=== PATIENT | female | born 1940 | race Hispanic/Latino ===

== ENCOUNTER 2018-03-27 14:28 | Emergency (ER) | payer MEDICARE, OTHER ==
[2018-03-27] MEDS ORDERED: Acetaminophen 500 MG TAB ONE (15:06)
--- NOTE | 2018-03-27 16:48 | CT ---
CT OF THE CERVICAL SPINE WITHOUT CONTRAST: Date: 03/27/18 COMPARISON: None. HISTORY: Fall with head trauma and neck pain. TECHNIQUE: Multiple contiguous axial images were obtained in a CT of the cervical spine without contrast. Sagitt al and coronal reformats were performed. FINDINGS: There are moderate degenerative changes in the lower cervical spine. The vertebral bodies demonstrate normal height and alignment without acute fracture or subluxation. No prevertebral soft tissue swell ing is seen. The posterior facets are well aligned. Normal alignment of the skull base with the cervical spine is seen. IMPRESSION: Degenerative changes of the cervical spine without acute osseous abnormality. POS: KEVIN
== END 2018-03-27 20:29 | disposition home or self-care (01) ==
LOC: ERS 14:28
DX: S16.1XXA Strain of muscle, fascia and tendon at neck level, initial encounter (principal); S70.01XA Contusion of right hip, initial encounter; E78.5 Hyperlipidemia, unspecified; E11.9 Type 2 diabetes mellitus without complications; Z79.4 Long term (current) use of insulin; I10 Essential (primary) hypertension; W11.XXXA Fall on and from ladder, initial encounter
CPT/HCPCS: 72125

== ENCOUNTER 2019-10-17 20:14 | Emergency (ER) | payer MEDICARE, OTHER | END 2019-10-17 20:43 | disposition home or self-care (01) | LOC: ERS 20:14 | DX: T16.2XXA Foreign body in left ear, initial encounter (principal); E11.9 Type 2 diabetes mellitus without complications; E78.5 Hyperlipidemia, unspecified; I10 Essential (primary) hypertension; Z79.4 Long term (current) use of insulin; Z79.899 Other long term (current) drug therapy; Z79.51 Long term (current) use of inhaled steroids | CPT/HCPCS: 99282 ==

== ENCOUNTER 2021-10-22 09:10 | Inpatient (IN) | payer MEDICARE, OTHER ==
[2021-10-22 09:37] LABS: #Lymphocytes 1.7 thou/uL (1.20-3.40); #Monocytes 0.6 thou/uL (0.11-0.59); #Neutrophils 6.2 thou/uL (1.40-6.50); %Basophils 0.4 % (0.0-1.0); %Lymphocytes 19.8 % (21.0-51.0); %Monocytes 7.3 % (0.0-10.0); %Neutrophils 72.5 % (42.0-75.0); Hemoglobin 10.2 g/dL (12.0-16.0); Mean Corpuscular HGB CONC 31.3 g/dL (32.0-36.0); Mean Corpuscular Hemoglobin 28.4 pg (27.0-31.0); Mean Corpuscular Volume 90.7 fL (78.0-98.0); Mean Platelet Volume 6.7 fL (7.4-10.4); Platelet Count 275 thou/uL (130-400); RBC Distribution Width 13.8 % (11.5-14.5); Red Blood Cell (RBC) Count 3.58 mill/uL (4.20-5.40); White Blood Cell (WBC) Count 8.6 thou/uL (4.8-10.8)
[2021-10-22] MEDS ORDERED: Diltiazem 125 MG/25 ML ONE (09:51)
[2021-10-22 10:01] LABS: ALT (SGPT) 25 U/L (8-55); AST (SGOT) 33 U/L (5-34); Albumin 3.4 g/dL (3.4-4.8); Alkaline Phosphatase 95 U/L (40-110); Anion Gap 13 mmol/L (10-20); BUN (Urea Nitrogen) 12 mg/dL (9.8-20.1); Bilirubin, Total 0.5 mg/dL (0.2-1.2); Calc. Creatinine Clearance 0 mL/min (70-130); Calcium 8.6 mg/dL (7.8-10.44); Carbon Dioxide 23 mmol/L (23-31); Chloride 100 mmol/L (98-107); Globulin 3.8 g/dL (2.4-3.5); Glucose 62 mg/dL (83-110); Lipase 12 U/L (8-78); Potassium 3.3 mmol/L (3.5-5.1); Protein, Total 7.2 g/dL (5.8-8.1); Sodium 133 mmol/L (136-145)
[2021-10-22 10:23] LABS: CKMB 3.8 ng/mL (0-6.6)
[2021-10-22] MEDS ORDERED: Amiodarone 150 MG, Admixture Fee 1 EACH in Dextrose 5% in Water 100 ML IVPB SCH (11:15)
[2021-10-22] MEDS ORDERED: Amiodarone 450 MG, Admixture Fee 1 EACH in Dextrose 5% in Water 250 ML IVPB SCH (11:15)
[2021-10-22] MEDS ORDERED: Ondansetron PF 4 MG/2 ML Vial IVP PRN (11:17)
[2021-10-22] MEDS ORDERED: Dextrose 50% Abboject 50 ML SYRINGE SLOW IVP PRN (11:25)
[2021-10-22] MEDS ORDERED: Dextrose 5% in Water 1,000 ML IV PRN (11:25)
[2021-10-22] MEDS ORDERED: HumaLOG 300 UNITS/3 ML VIAL SC PRN ×2 (11:25→14:30)
[2021-10-22] MEDS ORDERED: Enoxaparin Sodium 40 MG/0.4 ML SYRINGE SC SCH (11:30)
[2021-10-22] MEDS ORDERED: Amiodarone 450 MG in Dextrose 5% in Water 250 ML IVPB SCH (11:30)
[2021-10-22] MEDS ORDERED: Ondansetron PF 4 MG/2 ML Vial ONE (11:40)
[2021-10-22 12:08] LABS: Magnesium 1.9 mg/dL (1.6-2.6)
[2021-10-22] MEDS ORDERED: Enoxaparin Sodium 100 MG/ML SYRINGE ONE ×2 (12:16→12:17)
[2021-10-22 12:17] LABS: Troponin I 0.037 ng/mL (< 0.028)
[2021-10-22 12:59] VITALS: BMI 40.6
[2021-10-22] MEDS ORDERED: Magnesium 2 GM/50 ML 2 GM in Premix Bag 1 BAG IVPB SCH (13:15)
[2021-10-22] MEDS ORDERED: Calcium Carbonate 500 MG ChewTAB PO PRN (14:34)
[2021-10-22] MEDS ORDERED: Senokot S 8.6-50 MG TAB PO PRN (14:34)
[2021-10-22] MEDS ORDERED: Potassium Chloride 20 MEQ TAB PO SCH ×3 (14:45→21:00)
[2021-10-22] MEDS ORDERED: Furosemide 40 MG/4 ML VIAL SLOW IVP SCH (15:15)
[2021-10-22 18:20] LABS: Potassium 3.2 mmol/L (3.5-5.1)
[2021-10-22 18:21] LABS: Troponin I 0.037 ng/mL (< 0.028)
[2021-10-22] MEDS: Acetaminophen 325 MG TAB PO PRN (20:16)
[2021-10-22] MEDS: Enoxaparin Sodium 100 MG/ML SYRINGE SC SCH (20:17)
[2021-10-22] MEDS ORDERED: Famotidine 20 MG TAB PO SCH (21:00)
[2021-10-23 04:06] LABS: Anion Gap 13 mmol/L (10-20); BUN (Urea Nitrogen) 13 mg/dL (9.8-20.1); Calc. Creatinine Clearance 59 mL/min (70-130); Calcium 8.2 mg/dL (7.8-10.44); Carbon Dioxide 22 mmol/L (23-31); Chloride 105 mmol/L (98-107); Sodium 136 mmol/L (136-145)
[2021-10-23 04:17] LABS: #Lymphocytes 1.8 thou/uL (1.20-3.40); #Monocytes 0.9 thou/uL (0.11-0.59); #Neutrophils 6.7 thou/uL (1.40-6.50); %Basophils 0.5 % (0.0-1.0); %Lymphocytes 18.8 % (21.0-51.0); %Monocytes 9.2 % (0.0-10.0); %Neutrophils 71.4 % (42.0-75.0); Hemoglobin 9.7 g/dL (12.0-16.0); Mean Corpuscular HGB CONC 31.3 g/dL (32.0-36.0); Mean Corpuscular Hemoglobin 29.3 pg (27.0-31.0); Mean Corpuscular Volume 93.6 fL (78.0-98.0); Mean Platelet Volume 6.7 fL (7.4-10.4); Platelet Count 247 thou/uL (130-400); Red Blood Cell (RBC) Count 3.32 mill/uL (4.20-5.40); White Blood Cell (WBC) Count 9.3 thou/uL (4.8-10.8)
[2021-10-23 04:18] LABS: Glucose 52 mg/dL (83-110)
[2021-10-23] MEDS: Furosemide 40 MG/4 ML VIAL SLOW IVP SCH ×2 (06:44→13:03)
[2021-10-23] MEDS: Aspirin 81 mg Enteric Coated Tablet PO SCH (08:38)
[2021-10-23] MEDS: Enoxaparin Sodium 100 MG/ML SYRINGE SC SCH ×2 (08:38→20:33)
[2021-10-23] MEDS ORDERED: Enoxaparin Sodium 40 MG/0.4 ML SYRINGE SC SCH (09:00)
[2021-10-23] MEDS ORDERED: Iopamidol 370 76% 100 ML VIAL ONE (10:08)
[2021-10-23] MEDS ORDERED: Potassium Chloride 20 MEQ TAB PO SCH ×2 (10:45→17:00)
[2021-10-23] MEDS: Potassium Chloride 20 MEQ TAB PO SCH (17:11)
[2021-10-23] MEDS ORDERED: Ipratropium Bromide 2.5 ml Neb NEB PRN (17:48)
[2021-10-23] MEDS ORDERED: Albuterol Sulfate 2.5 mg/0.5 ml Neb NEB PRN (17:56)
[2021-10-23] MEDS: Ipratropium Bromide 2.5 ml Neb NEB SCH (19:00)
[2021-10-23] MEDS: Atorvastatin Calcium 20 MG TAB PO SCH (20:33)
[2021-10-24] MEDS: Ipratropium Bromide 2.5 ml Neb NEB SCH ×4 (01:00→19:25)
[2021-10-24 05:15] LABS: Anion Gap 9 mmol/L (10-20); BUN (Urea Nitrogen) 12 mg/dL (9.8-20.1); Calc. Creatinine Clearance 64 mL/min (70-130); Calcium 8.4 mg/dL (7.8-10.44); Carbon Dioxide 30 mmol/L (23-31); Chloride 102 mmol/L (98-107); Glucose 95 mg/dL (83-110); Magnesium 1.6 mg/dL (1.6-2.6); Potassium 3.8 mmol/L (3.5-5.1); Sodium 137 mmol/L (136-145)
[2021-10-24] MEDS: Furosemide 40 MG/4 ML VIAL SLOW IVP SCH ×2 (05:42→12:41)
[2021-10-24] MEDS: Aspirin 81 mg Enteric Coated Tablet PO SCH (08:32)
[2021-10-24] MEDS: Potassium Chloride 20 MEQ TAB PO SCH ×2 (08:32→17:25)
[2021-10-24] MEDS: Enoxaparin Sodium 100 MG/ML SYRINGE SC SCH ×2 (08:32→20:59)
[2021-10-24] MEDS ORDERED: Amiodarone 150 MG in Dextrose 5% in Water 100 ML IVPB SCH (09:15)
[2021-10-24] MEDS ORDERED: Magnesium Sulfate 4 GM in Sodium Chloride 0.9% 250 ML 250 ML IVPB SCH (10:00)
[2021-10-24] MEDS ORDERED: Digoxin 0.5 MG/2 ML AMP SLOW IVP SCH (11:45)
[2021-10-24] MEDS: HumaLOG 300 UNITS/3 ML VIAL SC PRN ×3 (12:41→20:59)
[2021-10-24] MEDS: Acetaminophen 325 MG TAB PO PRN (17:31)
[2021-10-24] MEDS: Amiodarone 450 MG in Dextrose 5% in Water 250 ML IVPB SCH (18:27)
[2021-10-24] MEDS: Atorvastatin Calcium 20 MG TAB PO SCH (20:59)
[2021-10-25] MEDS: Ipratropium Bromide 2.5 ml Neb NEB SCH ×4 (01:51→19:15)
[2021-10-25 04:41] LABS: BUN (Urea Nitrogen) 14 mg/dL (9.8-20.1); Calc. Creatinine Clearance 57 mL/min (70-130); Chloride 96 mmol/L (98-107); Glucose 181 mg/dL (83-110); Magnesium 1.8 mg/dL (1.6-2.6); Potassium 4.2 mmol/L (3.5-5.1); Sodium 135 mmol/L (136-145)
[2021-10-25] MEDS: Furosemide 40 MG/4 ML VIAL SLOW IVP SCH (06:35)
[2021-10-25] MEDS: HumaLOG 300 UNITS/3 ML VIAL SC PRN ×2 (06:35→22:33)
[2021-10-25] MEDS ORDERED: Magnesium Sulfate 2 GM in Sodium Chloride 0.9% 100 ML IVPB SCH (08:15)
[2021-10-25] MEDS: Enoxaparin Sodium 100 MG/ML SYRINGE SC SCH ×2 (08:53→21:59)
[2021-10-25] MEDS: Aspirin 81 mg Enteric Coated Tablet PO SCH (08:54)
[2021-10-25] MEDS: Potassium Chloride 20 MEQ TAB PO SCH ×2 (08:54→17:43)
[2021-10-25] MEDS ORDERED: Magnesium 2 GM/50 ML 2 GM in Premix Bag 1 BAG IVPB SCH (09:00)
[2021-10-25] MEDS ORDERED: Digoxin 0.5 MG/2 ML AMP SLOW IVP SCH (09:00)
[2021-10-25] MEDS: Acetaminophen 325 MG TAB PO PRN (13:22)
[2021-10-25] MEDS: Atorvastatin Calcium 20 MG TAB PO SCH (22:00)
[2021-10-25] MEDS: Metoprolol Tartrate 25 MG TAB PO SCH (22:00)
[2021-10-26] MEDS: Ipratropium Bromide 2.5 ml Neb NEB SCH ×5 (01:00→23:06)
[2021-10-26] MEDS: Amiodarone 450 MG in Dextrose 5% in Water 250 ML IVPB SCH (01:55)
[2021-10-26] MEDS: Acetaminophen 325 MG TAB PO PRN (02:03)
[2021-10-26 06:00] LABS: BUN (Urea Nitrogen) 12 mg/dL (9.8-20.1); Calc. Creatinine Clearance 64 mL/min (70-130); Calcium 8.6 mg/dL (7.8-10.44); Chloride 95 mmol/L (98-107); Glucose 241 mg/dL (83-110); Magnesium 1.4 mg/dL (1.6-2.6); Potassium 3.9 mmol/L (3.5-5.1); Sodium 132 mmol/L (136-145)
[2021-10-26] MEDS: HumaLOG 300 UNITS/3 ML VIAL SC PRN ×3 (06:04→17:10)
[2021-10-26] MEDS ORDERED: Magnesium Sulfate 4 GM in Sodium Chloride 0.9% 250 ML 250 ML IVPB SCH (08:30)
[2021-10-26 08:46] LABS: Digoxin 1.27 ng/mL (0.8-2.0)
[2021-10-26] MEDS: Potassium Chloride 20 MEQ TAB PO SCH ×2 (09:59→17:01)
[2021-10-26] MEDS: Furosemide 40 MG/4 ML VIAL SLOW IVP SCH (10:00)
[2021-10-26] MEDS: Enoxaparin Sodium 100 MG/ML SYRINGE SC SCH (10:01)
[2021-10-26] MEDS: Metoprolol Tartrate 25 MG TAB PO SCH (10:02)
[2021-10-26] MEDS: Aspirin 81 mg Enteric Coated Tablet PO SCH (10:02)
[2021-10-26] MEDS: Digoxin 0.125 MG TAB PO SCH (10:02)
[2021-10-26 16:12] LABS: Anion Gap 14 mmol/L (10-20); BUN (Urea Nitrogen) 11 mg/dL (9.8-20.1); Calc. Creatinine Clearance 53 mL/min (70-130); Calcium 9.2 mg/dL (7.8-10.44); Carbon Dioxide 30 mmol/L (23-31); Chloride 95 mmol/L (98-107); Glucose 259 mg/dL (83-110); Potassium 4.1 mmol/L (3.5-5.1); Sodium 135 mmol/L (136-145)
[2021-10-26 16:26] LABS: Carbon Dioxide 24 mmol/L (23-31)
[2021-10-26 16:26] LABS: Anion Gap 15 mmol/L (10-20); Carbon Dioxide 28 mmol/L (23-31)
[2021-10-26 16:27] LABS: Anion Gap 17 mmol/L (10-20)
[2021-10-26] MEDS ORDERED: Amiodarone 200 MG TAB PO SCH (16:30)
[2021-10-26] MEDS: Amiodarone 200 MG TAB PO SCH (20:44)
[2021-10-26] MEDS: Apixaban 5 MG TAB PO SCH (20:45)
[2021-10-26] MEDS: Atorvastatin Calcium 20 MG TAB PO SCH (20:45)
[2021-10-27] MEDS: HumaLOG 300 UNITS/3 ML VIAL SC PRN ×5 (02:04→19:33)
[2021-10-27 05:09] LABS: Anion Gap 11 mmol/L (10-20); BUN (Urea Nitrogen) 10 mg/dL (9.8-20.1); Calc. Creatinine Clearance 60 mL/min (70-130); Calcium 8.8 mg/dL (7.8-10.44); Carbon Dioxide 32 mmol/L (23-31); Chloride 96 mmol/L (98-107); Glucose 200 mg/dL (83-110); Magnesium 1.9 mg/dL (1.6-2.6); Sodium 135 mmol/L (136-145)
[2021-10-27] MEDS: Ipratropium Bromide 2.5 ml Neb NEB SCH ×4 (07:49→23:16)
[2021-10-27] MEDS ORDERED: Magnesium Sulfate 2 GM in Sodium Chloride 0.9% 100 ML IVPB SCH (08:15)
[2021-10-27] MEDS ORDERED: Magnesium 2 GM/50 ML 2 GM in Premix Bag 1 BAG IVPB SCH (08:15)
[2021-10-27] MEDS: Aspirin 81 mg Enteric Coated Tablet PO SCH (09:54)
[2021-10-27] MEDS: Apixaban 5 MG TAB PO SCH ×2 (09:54→19:34)
[2021-10-27] MEDS: Potassium Chloride 20 MEQ TAB PO SCH ×2 (09:55→17:09)
[2021-10-27] MEDS: Amiodarone 200 MG TAB PO SCH ×2 (09:55→19:34)
[2021-10-27] MEDS: Digoxin 0.25 MG TAB PO SCH (09:56)
[2021-10-27] MEDS: Lisinopril 2.5 MG TAB PO SCH (09:56)
[2021-10-27] MEDS: Furosemide 40 MG/4 ML VIAL SLOW IVP SCH (09:56)
[2021-10-27] MEDS: Digoxin 0.125 MG TAB PO SCH (11:55)
[2021-10-27] MEDS: Atorvastatin Calcium 20 MG TAB PO SCH (19:34)
[2021-10-28] MEDS: HumaLOG 300 UNITS/3 ML VIAL SC PRN ×3 (02:49→18:07)
[2021-10-28 05:50] LABS: Anion Gap 14 mmol/L (10-20); BUN (Urea Nitrogen) 17 mg/dL (9.8-20.1); Calc. Creatinine Clearance 46 mL/min (70-130); Calcium 8.7 mg/dL (7.8-10.44); Carbon Dioxide 28 mmol/L (23-31); Chloride 94 mmol/L (98-107); Glucose 225 mg/dL (83-110); Magnesium 1.9 mg/dL (1.6-2.6); Potassium 4.3 mmol/L (3.5-5.1); Sodium 132 mmol/L (136-145)
[2021-10-28] MEDS: Ipratropium Bromide 2.5 ml Neb NEB SCH ×3 (07:31→19:55)
[2021-10-28] MEDS ORDERED: Electrolyte Replacement Protocol 1 EACH FS SCH (08:00)
[2021-10-28] MEDS ORDERED: Magnesium Sulfate 2 GM in Sodium Chloride 0.9% 100 ML IVPB SCH (08:00)
[2021-10-28] MEDS ORDERED: Magnesium 2 GM/50 ML 2 GM in Premix Bag 1 BAG IVPB SCH (08:00)
[2021-10-28] MEDS: Lisinopril 2.5 MG TAB PO SCH (08:48)
[2021-10-28] MEDS: Aspirin 81 mg Enteric Coated Tablet PO SCH (08:48)
[2021-10-28] MEDS: Digoxin 0.25 MG TAB PO SCH (08:49)
[2021-10-28] MEDS: Potassium Chloride 20 MEQ TAB PO SCH ×2 (08:49→15:57)
[2021-10-28] MEDS: Amiodarone 200 MG TAB PO SCH ×2 (08:50→20:56)
[2021-10-28] MEDS: Apixaban 5 MG TAB PO SCH ×2 (08:51→20:56)
[2021-10-28] MEDS: Furosemide 40 MG/4 ML VIAL SLOW IVP SCH (10:00)
[2021-10-28 13:02] LABS: SARS-CoV-2 PCR by NAA Not Detected (NotDetected)
[2021-10-28] MEDS: Atorvastatin Calcium 20 MG TAB PO SCH (20:56)
[2021-10-28] MEDS ORDERED: HumaLOG 300 UNITS/3 ML VIAL SC PRN (22:39)
[2021-10-28] MEDS ORDERED: Dextrose 50% Abboject 50 ML SYRINGE SLOW IVP PRN (22:39)
[2021-10-28] MEDS ORDERED: Dextrose 5% in Water 1,000 ML IV PRN (22:39)
[2021-10-29] MEDS: Ipratropium Bromide 2.5 ml Neb NEB SCH ×2 (01:50→08:24)
[2021-10-29] MEDS: HumaLOG 300 UNITS/3 ML VIAL SC PRN ×2 (06:03→11:07)
[2021-10-29 07:49] VITALS: TEMP 98.3
[2021-10-29] MEDS ORDERED: NPH, Human Insulin Isophane 300 UNIT/3 ML VIAL SC SCH (09:00)
[2021-10-29] MEDS: Aspirin 81 mg Enteric Coated Tablet PO SCH (09:21)
[2021-10-29] MEDS: Amiodarone 200 MG TAB PO SCH (09:21)
[2021-10-29] MEDS: Apixaban 5 MG TAB PO SCH (09:21)
[2021-10-29] MEDS: Lisinopril 2.5 MG TAB PO SCH (09:23)
[2021-10-29 11:45] VITALS: BP 142/61
== END 2021-10-29 12:36 | disposition home or self-care (01) | DRG 291 ==
LOC: ERS 09:10 → IMCU/EMU 11:28 → 2NO 10-23 15:18
PROVIDERS: ADMIT Internal Medicine; ATTEND Internal Medicine
DX: I11.0 Hypertensive heart disease with heart failure (principal); J96.01 Acute respiratory failure with hypoxia; I50.43 Acute on chronic combined systolic (congestive) and diastolic (congestive) heart failure; Z68.41 Body mass index [BMI] 40.0-44.9, adult; E87.1 Hypo-osmolality and hyponatremia; E87.3 Alkalosis; Z20.822 Contact with and (suspected) exposure to COVID-19; M19.90 Unspecified osteoarthritis, unspecified site; K59.00 Constipation, unspecified; E78.5 Hyperlipidemia, unspecified; G25.81 Restless legs syndrome; K21.9 Gastro-esophageal reflux disease without esophagitis; E66.01 Morbid (severe) obesity due to excess calories; E87.6 Hypokalemia; D53.9 Nutritional anemia, unspecified; I48.0 Paroxysmal atrial fibrillation; I08.1 Rheumatic disorders of both mitral and tricuspid valves; E11.649 Type 2 diabetes mellitus with hypoglycemia without coma; E83.42 Hypomagnesemia; Z79.4 Long term (current) use of insulin; Z90.49 Acquired absence of other specified parts of digestive tract; Z90.710 Acquired absence of both cervix and uterus; Z98.42 Cataract extraction status, left eye; Z98.41 Cataract extraction status, right eye; Z88.5 Allergy status to narcotic agent; Z88.8 Allergy status to other drugs, medicaments and biological substances; Z86.16 Personal history of COVID-19; Z79.899 Other long term (current) drug therapy
CPT/HCPCS: 36415; 36416; 71045; 71275; 80048; 80053; 80162; 82533; 82553; 83690; 83735; 83880; 84484; 85025; 85379; 93005; 93010; 93306; 93798; 94640; 96365; 96372; 96374; 96375; J0282; J1160; J1650; J1815; J1940; J2405; J3475; J7050; J7070; Q9967; U0003; U0005

== ENCOUNTER 2022-01-31 00:54 | Emergency (ER) | payer MEDICARE, OTHER | END 2022-01-31 03:30 | disposition home or self-care (01) | LOC: ERS 00:54 | DX: E11.649 Type 2 diabetes mellitus with hypoglycemia without coma (principal); I10 Essential (primary) hypertension; E78.5 Hyperlipidemia, unspecified; M19.90 Unspecified osteoarthritis, unspecified site; Z79.4 Long term (current) use of insulin; Z86.16 Personal history of COVID-19; Z79.01 Long term (current) use of anticoagulants; Z79.899 Other long term (current) drug therapy | CPT/HCPCS: 36416; 70450; 71045 ==

== ENCOUNTER 2022-05-09 23:24 | Observation (INO) | payer MEDICARE, OTHER ==
[2022-05-09 23:51] LABS: #Lymphocytes 2.5 thou/uL (1.20-3.40); #Monocytes 0.6 thou/uL (0.11-0.59); #Neutrophils 5.4 thou/uL (1.40-6.50); %Basophils 0.6 % (0.0-1.0); %Eosinophils 0.1 % (0.0-10.0); %Lymphocytes 29.3 % (21.0-51.0); %Neutrophils 63.1 % (42.0-75.0); Hemoglobin 10.9 g/dL (12.0-16.0); Mean Corpuscular HGB CONC 32.9 g/dL (32.0-36.0); Mean Corpuscular Hemoglobin 31.4 pg (27.0-31.0); Mean Corpuscular Volume 95.5 fL (78.0-98.0); Mean Platelet Volume 7.5 fL (7.4-10.4); Platelet Count 223 thou/uL (130-400); RBC Distribution Width 12.3 % (11.5-14.5); Red Blood Cell (RBC) Count 3.48 mill/uL (4.20-5.40); White Blood Cell (WBC) Count 8.6 thou/uL (4.8-10.8)
[2022-05-10 00:12] LABS: ALT (SGPT) 20 U/L (8-55); AST (SGOT) 22 U/L (5-34); Albumin 3.5 g/dL (3.4-4.8); Alkaline Phosphatase 117 U/L (40-110); Anion Gap 15 mmol/L (10-20); BUN (Urea Nitrogen) 22 mg/dL (9.8-20.1); Bilirubin, Total 0.3 mg/dL (0.2-1.2); Calc. Creatinine Clearance 0 mL/min (70-130); Calcium 8.8 mg/dL (7.8-10.44); Carbon Dioxide 23 mmol/L (23-31); Chloride 105 mmol/L (98-107); Estimated GFR 43; Globulin 3.5 g/dL (2.4-3.5); Glucose 147 mg/dL (83-110); Lipase 27 U/L (8-78); Potassium 3.8 mmol/L (3.5-5.1); Sodium 139 mmol/L (136-145)
[2022-05-10] MEDS ORDERED: Dextrose 5% in Water 1,000 ML IV PRN (01:15)
[2022-05-10] MEDS ORDERED: Bisacodyl 5 MG TAB PO PRN (01:15)
[2022-05-10] MEDS ORDERED: Acetaminophen 325 MG TAB PO PRN (01:15)
[2022-05-10] MEDS ORDERED: HumaLOG 300 UNITS/3 ML VIAL SC PRN ×2 (01:15)
[2022-05-10] MEDS ORDERED: Zolpidem Tartrate 5 MG TAB PO PRN (01:15)
[2022-05-10] MEDS ORDERED: Nitroglycerin 0.4 MG TAB (25 Tab Bottle) SL PRN (01:15)
[2022-05-10] MEDS ORDERED: traMADol HCl 50 MG TAB PO PRN (01:18)
[2022-05-10] MEDS ORDERED: hydrALAZINE 20 MG/ML VIAL SLOW IVP PRN (01:22)
[2022-05-10] MEDS ORDERED: Morphine 2 MG/ML VIAL SLOW IVP PRN (01:22)
[2022-05-10] MEDS ORDERED: Nitroglycerin 0.4 MG TAB (25 Tab Bottle) SL SCH (01:22)
[2022-05-10] MEDS ORDERED: Amiodarone 200 MG TAB PO SCH ×2 (01:30→09:00)
[2022-05-10] MEDS ORDERED: Aspirin 325 MG TAB PO SCH (02:30)
[2022-05-10 02:48] VITALS: BMI 33.6
[2022-05-10 03:06] LABS: #Lymphocytes 3.7 thou/uL (1.20-3.40); #Monocytes 0.8 thou/uL (0.11-0.59); #Neutrophils 5.4 thou/uL (1.40-6.50); %Basophils 0.1 % (0.0-1.0); %Lymphocytes 37.3 % (21.0-51.0); %Monocytes 8.3 % (0.0-10.0); %Neutrophils 54.3 % (42.0-75.0); Mean Corpuscular HGB CONC 33.2 g/dL (32.0-36.0); Mean Corpuscular Hemoglobin 31.6 pg (27.0-31.0); Mean Corpuscular Volume 95.2 fL (78.0-98.0); Mean Platelet Volume 7.6 fL (7.4-10.4); Platelet Count 221 thou/uL (130-400); RBC Distribution Width 12.5 % (11.5-14.5); Red Blood Cell (RBC) Count 3.49 mill/uL (4.20-5.40)
[2022-05-10] MEDS: Dextrose 50% Abboject 50 ML SYRINGE SLOW IVP PRN ×2 (03:19→05:38)
[2022-05-10 03:31] LABS: Troponin I 0.038 ng/mL (< 0.028)
[2022-05-10 03:42] LABS: ALT (SGPT) 20 U/L (8-55); AST (SGOT) 22 U/L (5-34); Albumin 3.6 g/dL (3.4-4.8); Alkaline Phosphatase 101 U/L (40-110); Anion Gap 13 mmol/L (10-20); BUN (Urea Nitrogen) 19 mg/dL (9.8-20.1); Bilirubin, Total 0.3 mg/dL (0.2-1.2); Calc. Creatinine Clearance 51 mL/min (70-130); Carbon Dioxide 25 mmol/L (23-31); Chloride 105 mmol/L (98-107); Estimated GFR 51; Globulin 3.5 g/dL (2.4-3.5); Potassium 3.4 mmol/L (3.5-5.1); Protein, Total 7.1 g/dL (5.8-8.1); Sodium 140 mmol/L (136-145)
[2022-05-10 03:46] LABS: Glucose 37 mg/dL (83-110)
[2022-05-10 06:45] LABS: Troponin I 0.028 ng/mL (< 0.028)
[2022-05-10] MEDS ORDERED: Furosemide 40 MG/4 ML VIAL SLOW IVP SCH (08:15)
[2022-05-10] MEDS ORDERED: Regadenoson 0.4 MG/5 ML SYRINGE ONE (08:16)
[2022-05-10] MEDS ORDERED: Aspirin Chewable 81 MG TAB PO SCH (09:00)
[2022-05-10] MEDS ORDERED: Atorvastatin Calcium 20 MG TAB PO SCH (09:00)
[2022-05-10] MEDS ORDERED: Apixaban 5 MG TAB PO SCH (09:00)
[2022-05-10] MEDS ORDERED: Lisinopril 2.5 MG TAB PO SCH (09:00)
[2022-05-10] MEDS ORDERED: Electrolyte Replacement Protocol 1 EACH FS PRN (11:00)
[2022-05-10 11:35] LABS: Magnesium 1.9 mg/dL (1.6-2.6)
[2022-05-10] MEDS ORDERED: Insulin Regular 300 UNITS/3 ML VIAL SC PRN (13:01)
[2022-05-10 13:54] VITALS: BP 164/72
[2022-05-10 16:19] VITALS: TEMP 97.3
[2022-05-10] MEDS ORDERED: Insulin Glargine 30 UNITS/0.3 ML VIAL SC SCH (21:00)
== END 2022-05-10 16:45 | disposition home or self-care (01) ==
LOC: ERS 23:24 → 2NO 05-10 00:50
PROVIDERS: ADMIT Internal Medicine; ATTEND Internal Medicine
DX: R07.89 Other chest pain (principal); R77.8 Other specified abnormalities of plasma proteins; I48.0 Paroxysmal atrial fibrillation; E11.649 Type 2 diabetes mellitus with hypoglycemia without coma; E78.5 Hyperlipidemia, unspecified; E87.6 Hypokalemia; I13.0 Hypertensive heart and chronic kidney disease with heart failure and stage 1 through stage 4 chronic kidney disease, or unspecified chronic kidney disease; E11.22 Type 2 diabetes mellitus with diabetic chronic kidney disease; N18.30 Chronic kidney disease, stage 3 unspecified; I50.30 Unspecified diastolic (congestive) heart failure; N17.9 Acute kidney failure, unspecified; D63.1 Anemia in chronic kidney disease; I45.10 Unspecified right bundle-branch block; K21.9 Gastro-esophageal reflux disease without esophagitis; G25.81 Restless legs syndrome; M19.90 Unspecified osteoarthritis, unspecified site; I70.0 Atherosclerosis of aorta; E66.9 Obesity, unspecified; Z68.33 Body mass index [BMI] 33.0-33.9, adult; Z79.01 Long term (current) use of anticoagulants; Z79.4 Long term (current) use of insulin; Z79.899 Other long term (current) drug therapy; Z88.5 Allergy status to narcotic agent; Z95.0 Presence of cardiac pacemaker; Z20.822 Contact with and (suspected) exposure to COVID-19
CPT/HCPCS: 71045; 78452; 80053 ×2; 82553; 82962; 83690; 83735; 84484 ×3; 85025 ×2; 93005; 93017; 94760; 96374; 96375; 99285; A9500; G0378 ×2; U0003; U0005; 36415; 36416; J1940; J2785; J7070; J7999

== ENCOUNTER 2022-05-18 14:26 | Outpatient (CLI) | payer MEDICARE, OTHER ==
[2022-05-18 16:48] LABS: Hemoglobin 10.1 g/dL (12.0-15.5); Mean Corpuscular HGB CONC 31.3 g/dL (32.0-36.0); Mean Corpuscular Hemoglobin 30.1 pg (27.0-33.0); Mean Corpuscular Volume 96.4 fl (81.6-98.3); Mean Platelet Volume 10.3 fl (7.4-10.4); Platelet Count 235 10x3/uL (150-450); RBC Distribution Width 13.5 % (11.5-14.5); Red Blood Cell (RBC) Count 3.35 10x6/uL (3.90-5.03); White Blood Cell (WBC) Count 7.4 10x3/uL (3.5-10.5)
[2022-05-18 16:53] LABS: Prothrombin Time 10.6 sec (9.5-12.1)
[2022-05-18 17:54] LABS: Anion Gap 17 mmol/L (10-20); BUN (Urea Nitrogen) 22 mg/dL (9.8-20.1); Calc. Creatinine Clearance 0 mL/min (70-130); Calcium 8.6 mg/dL (7.8-10.44); Carbon Dioxide 25 mmol/L (23-31); Chloride 105 mmol/L (98-107); Estimated GFR 42; Glucose 111 mg/dL (83-110); Potassium 4.9 mmol/L (3.5-5.1); Sodium 142 mmol/L (136-145)
== END 2022-05-18 14:27 | disposition home or self-care (01) ==
LOC: LABBT 14:26
PROVIDERS: ATTEND Internal Medicine Cardiovascular Disease
DX: Z01.812 Encounter for preprocedural laboratory examination (principal); R00.1 Bradycardia, unspecified; Z20.822 Contact with and (suspected) exposure to COVID-19
CPT/HCPCS: 80048; 85027; 85610; 87811

== ENCOUNTER 2022-05-21 08:23 | Day surgery (SDC) | payer MEDICARE, OTHER ==
[2022-05-19 14:05] VITALS: BMI 33.2
[2022-05-21] MEDS ORDERED: Vancomycin (BATCH) 1.5 GRAM/300 ML BAG ONE (08:40)
[2022-05-21] MEDS ORDERED: Lidocaine 1% (PF) 30 ML VIAL ONE (09:05)
[2022-05-21] MEDS ORDERED: Gentamicin 80 MG/2 ML VIAL ONE (09:07)
[2022-05-21] MEDS ORDERED: ceFAZolin 2 GM/Dextrose 50 ML IVPB ONE (09:07)
[2022-05-21] MEDS ORDERED: CEFAZOLIN 1 GM VIAL ONE (09:07)
[2022-05-21] MEDS ORDERED: Dextrose 50% Abboject 50 ML SYRINGE ONE (09:32)
[2022-05-21] MEDS ORDERED: Dexmedetomidine 200 MCG/2 ML VIAL ONE ×2 (10:10→10:14)
[2022-05-21] MEDS ORDERED: Fentanyl 100 MCG/2 ML VIAL ONE (10:24)
[2022-05-21] MEDS ORDERED: Midazolam HCl 2 mg/2 ml Vial ONE ×2 (10:24→10:46)
== END 2022-05-21 15:40 | disposition home or self-care (01) ==
LOC: SDC 08:23
PROVIDERS: ATTEND Internal Medicine Cardiovascular Disease
PROC: 0JH606Z Insertion of Pacemaker, Dual Chamber into Chest Subcutaneous Tissue and Fascia, Open Approach (ICD-10-PCS; principal; 2022-05-21)
PROC: 02H43JZ Insertion of Pacemaker Lead into Coronary Vein, Percutaneous Approach (ICD-10-PCS; 2022-05-21)
DX: I49.5 Sick sinus syndrome (principal); I11.0 Hypertensive heart disease with heart failure; I50.22 Chronic systolic (congestive) heart failure; I34.0 Nonrheumatic mitral (valve) insufficiency; I48.0 Paroxysmal atrial fibrillation; E11.9 Type 2 diabetes mellitus without complications; E78.5 Hyperlipidemia, unspecified; D64.9 Anemia, unspecified; K21.9 Gastro-esophageal reflux disease without esophagitis; G25.81 Restless legs syndrome; Z79.01 Long term (current) use of anticoagulants; Z79.4 Long term (current) use of insulin; Z79.899 Other long term (current) drug therapy; Z88.5 Allergy status to narcotic agent; Z88.8 Allergy status to other drugs, medicaments and biological substances
CPT/HCPCS: 33208; 71045; 82962; 93005; J3370; 36416; 99152; J0690; J1580; J2001; J2250; J3010; J7999

== ENCOUNTER 2022-08-29 19:43 | Emergency (ER) | payer MEDICARE, OTHER | END 2022-08-29 22:30 | disposition home or self-care (01) | LOC: ERS 19:43 | DX: S81.011A Laceration without foreign body, right knee, initial encounter (principal); E78.5 Hyperlipidemia, unspecified; E11.9 Type 2 diabetes mellitus without complications; Z79.4 Long term (current) use of insulin; I10 Essential (primary) hypertension; Z79.899 Other long term (current) drug therapy; W18.39XA Other fall on same level, initial encounter ==

== ENCOUNTER 2022-12-19 06:35 | Inpatient (IN) | payer MEDICARE, OTHER ==
[2022-12-19] MEDS ORDERED: methylPREDNISolone Sod Succ/PF 125 MG/2 ML VIAL ONE (07:17)
[2022-12-19] MEDS ORDERED: Ondansetron PF 4 MG/2 ML Vial ONE (07:17)
[2022-12-19] MEDS ORDERED: Ipratropium/Albuterol 3 ML NEB ONE ×2 (07:47→09:50)
[2022-12-19 08:02] LABS: #Lymphocytes 2.3 thou/uL (1.20-3.40); #Neutrophils 6.8 thou/uL (1.40-6.50); %Basophils 0.4 % (0.0-1.0); %Eosinophils 0.3 % (0.0-10.0); %Lymphocytes 22.2 % (21.0-51.0); %Monocytes 9.6 % (0.0-10.0); %Neutrophils 67.5 % (42.0-75.0); Hemoglobin 11.2 g/dL (12.0-16.0); Mean Corpuscular HGB CONC 32.1 g/dL (32.0-36.0); Mean Corpuscular Hemoglobin 30.7 pg (27.0-31.0); Mean Corpuscular Volume 95.5 fl (78.0-98.0); Mean Platelet Volume 7.9 fL (7.4-10.4); Platelet Count 270 10x3/uL (130-400); RBC Distribution Width 12.7 % (11.5-14.5); Red Blood Cell (RBC) Count 3.67 mill/uL (4.20-5.40); White Blood Cell (WBC) Count 10.1 10x3/uL (4.8-10.8)
[2022-12-19 08:25] LABS: ALT (SGPT) 28 U/L (8-55); AST (SGOT) 32 U/L (5-34); Albumin 3.5 g/dL (3.4-4.8); Alkaline Phosphatase 111 U/L (40-110); Anion Gap 12 mmol/L (10-20); BUN (Urea Nitrogen) 23 mg/dL (9.8-20.1); Bilirubin, Total 0.3 mg/dL (0.2-1.2); Calc. Creatinine Clearance 0 mL/min (70-130); Carbon Dioxide 27 mmol/L (23-31); Chloride 105 mmol/L (98-107); Estimated GFR 53; Globulin 3.9 g/dL (2.4-3.5); Potassium 3.9 mmol/L (3.5-5.1); Protein, Total 7.4 g/dL (5.8-8.1); Sodium 140 mmol/L (136-145)
[2022-12-19 08:36] LABS: Glucose 45 mg/dL (83-110)
[2022-12-19 08:46] LABS: CKMB 4.3 ng/mL (0-6.6)
[2022-12-19] MEDS ORDERED: Aspirin Chewable 81 MG TAB ONE (09:06)
[2022-12-19] MEDS ORDERED: Nitroglycerin 2% Ointment 1 INCH/1 GM Packet ONE (09:06)
[2022-12-19] MEDS ORDERED: Azithromycin 500 MG VIAL ONE (09:15)
[2022-12-19] MEDS ORDERED: cefTRIAXone (ROCEPHIN) 2 GM VIAL ONE (09:15)
[2022-12-19] MEDS ORDERED: Azithromycin 250 MG TAB ONE (09:48)
[2022-12-19 10:18] LABS: Troponin I 0.034 ng/mL (< 0.028)
[2022-12-19] MEDS ORDERED: Ondansetron PF 4 MG/2 ML Vial IVP PRN (11:15)
[2022-12-19] MEDS ORDERED: Acetaminophen 325 MG TAB PO PRN (11:15)
[2022-12-19] MEDS ORDERED: Ondansetron ODT 4 MG TAB SL PRN (11:15)
[2022-12-19 11:34] VITALS: BMI 35.0
[2022-12-19] MEDS ORDERED: Guaifenesin DM 100-10/5 ML UDCUP PO PRN (12:35)
[2022-12-19 14:05] LABS: Troponin I 0.036 ng/mL (< 0.028)
[2022-12-19] MEDS ORDERED: Dextrose 5% in Water 1,000 ML IV PRN (17:32)
[2022-12-19] MEDS ORDERED: Dextrose 50% Abboject 50 ML SYRINGE SLOW IVP PRN (17:32)
[2022-12-19] MEDS ORDERED: Insulin Glargine 30 UNITS/0.3 ML VIAL SC SCH (17:45)
[2022-12-19] MEDS: Famotidine 20 MG TAB PO SCH (20:35)
[2022-12-19] MEDS: Atorvastatin Calcium 20 MG TAB PO SCH (20:35)
[2022-12-19] MEDS: Apixaban 5 MG TAB PO SCH (20:35)
[2022-12-19] MEDS: methylPREDNISolone Sod Succ 40 MG VIAL IVP SCH (20:36)
[2022-12-19] MEDS ORDERED: Famotidine 20 MG TAB PO SCH (21:00)
[2022-12-20 05:36] LABS: #Lymphocytes 0.7 thou/uL (1.20-3.40); #Monocytes 0.3 thou/uL (0.11-0.59); #Neutrophils 7.3 thou/uL (1.40-6.50); %Eosinophils 0.1 % (0.0-10.0); %Lymphocytes 8.7 % (21.0-51.0); %Monocytes 3.3 % (0.0-10.0); %Neutrophils 87.9 % (42.0-75.0); Hemoglobin 10.2 g/dL (12.0-16.0); Mean Corpuscular HGB CONC 32.4 g/dL (32.0-36.0); Mean Corpuscular Hemoglobin 30.5 pg (27.0-31.0); Mean Corpuscular Volume 94.4 fl (78.0-98.0); Mean Platelet Volume 8.4 fL (7.4-10.4); Platelet Count 232 10x3/uL (130-400); RBC Distribution Width 12.7 % (11.5-14.5); Red Blood Cell (RBC) Count 3.34 mill/uL (4.20-5.40); White Blood Cell (WBC) Count 8.3 10x3/uL (4.8-10.8)
[2022-12-20 05:47] LABS: Anion Gap 13 mmol/L (10-20); BUN (Urea Nitrogen) 19 mg/dL (9.8-20.1); Calc. Creatinine Clearance 54 mL/min (70-130); Calcium 8.9 mg/dL (7.8-10.44); Carbon Dioxide 25 mmol/L (23-31); Chloride 103 mmol/L (98-107); Estimated GFR 53; Glucose 319 mg/dL (83-110); Potassium 4.5 mmol/L (3.5-5.1); Sodium 136 mmol/L (136-145)
[2022-12-20] MEDS: HumaLOG 300 UNITS/3 ML VIAL SC PRN ×3 (06:17→16:17)
[2022-12-20] MEDS ORDERED: Lisinopril 2.5 MG TAB PO SCH (09:00)
[2022-12-20] MEDS: methylPREDNISolone Sod Succ 40 MG VIAL IVP SCH ×2 (09:08→21:13)
[2022-12-20] MEDS: Amiodarone 200 MG TAB PO SCH (09:11)
[2022-12-20] MEDS: Insulin Glargine 30 UNITS/0.3 ML VIAL SC SCH ×2 (09:11→21:12)
[2022-12-20] MEDS: Apixaban 5 MG TAB PO SCH ×2 (09:11→21:10)
[2022-12-20] MEDS ORDERED: Albuterol HFA (OR) 200 PUFF INH INH PRN (16:15)
[2022-12-20] MEDS ORDERED: Insulin Regular 300 UNITS/3 ML VIAL SC SCH (16:30)
[2022-12-20] MEDS: Albuterol HFA (OR) 200 PUFF INH INH SCH ×2 (18:52→23:43)
[2022-12-20] MEDS: Lisinopril 20 MG TAB PO SCH (21:11)
[2022-12-20] MEDS: Famotidine 20 MG TAB PO SCH (21:11)
[2022-12-20] MEDS: guaiFENesin ER 600 MG TAB PO SCH (21:12)
[2022-12-20] MEDS: Atorvastatin Calcium 20 MG TAB PO SCH (21:13)
[2022-12-21] MEDS: Albuterol HFA (OR) 200 PUFF INH INH SCH ×6 (03:20→23:49)
[2022-12-21] MEDS: HumaLOG 300 UNITS/3 ML VIAL SC PRN ×4 (06:07→21:51)
[2022-12-21] MEDS: Insulin Glargine 30 UNITS/0.3 ML VIAL SC SCH ×2 (08:27→21:49)
[2022-12-21] MEDS: Lisinopril 20 MG TAB PO SCH ×2 (08:46→21:50)
[2022-12-21] MEDS: methylPREDNISolone Sod Succ 40 MG VIAL IVP SCH ×2 (08:47→22:04)
[2022-12-21] MEDS: Apixaban 5 MG TAB PO SCH ×2 (08:47→21:50)
[2022-12-21] MEDS: guaiFENesin ER 600 MG TAB PO SCH ×2 (08:47→21:50)
[2022-12-21] MEDS: Amiodarone 200 MG TAB PO SCH (08:49)
[2022-12-21 16:50] LABS: Bacteria/HPF None Seen HPF (None Seen); Bilirubin Negative (Negative); Blood, Urine Negative (Negative); CAUTI Indications for Culture Dysuria,urgency,freq; Clarity Clear (Clear); Glucose, Urine (Dipstick) Greater than 1000 mg/dL (Negative); Ketone, Urine Negative (Negative); Leukocyte 75 Leu/uL (Negative); Nitrite Negative (Negative); Protein, Urine (Dipstick) Negative (Neg-Trace); RBC/HPF None Seen HPF (0-3); Specific Gravity, Urine 1.023 (1.002-1.036); Squamous Epithelial 0-3 HPF (0-3); Urobilinogen Normal mg/dL (Less than 2); Yeast-Budding 3+ HPF (None Seen); pH, Urine 6.5 (5.0-9.0)
[2022-12-21 16:53] LABS: Urine Culture Reflex No No
[2022-12-21] MEDS: Atorvastatin Calcium 20 MG TAB PO SCH (21:50)
[2022-12-21] MEDS: Cefdinir 300 MG CAP PO SCH (21:50)
[2022-12-21] MEDS: Famotidine 20 MG TAB PO SCH (21:50)
[2022-12-22] MEDS: Albuterol HFA (OR) 200 PUFF INH INH SCH ×6 (02:33→23:33)
[2022-12-22] MEDS: HumaLOG 300 UNITS/3 ML VIAL SC PRN ×4 (06:43→22:08)
[2022-12-22] MEDS ORDERED: Fluconazole 100 MG TAB PO SCH (07:45)
[2022-12-22] MEDS ORDERED: Guaifenesin DM 100-10/5 ML UDCUP PO SCH (09:15)
[2022-12-22] MEDS: Apixaban 5 MG TAB PO SCH ×2 (09:41→22:07)
[2022-12-22] MEDS: Cefdinir 300 MG CAP PO SCH ×2 (09:41→22:07)
[2022-12-22] MEDS: guaiFENesin ER 600 MG TAB PO SCH ×2 (09:42→22:07)
[2022-12-22] MEDS: Insulin Glargine 30 UNITS/0.3 ML VIAL SC SCH ×2 (09:42→22:08)
[2022-12-22] MEDS: Amiodarone 200 MG TAB PO SCH (09:42)
[2022-12-22] MEDS: Lisinopril 20 MG TAB PO SCH ×2 (09:42→22:07)
[2022-12-22] MEDS: methylPREDNISolone Sod Succ 40 MG VIAL IVP SCH ×2 (09:43→22:08)
[2022-12-22] MEDS ORDERED: NIFEdipine XL 60 MG TAB PO SCH (15:45)
[2022-12-22] MEDS: Famotidine 20 MG TAB PO SCH (22:07)
[2022-12-22] MEDS: Atorvastatin Calcium 20 MG TAB PO SCH (22:07)
[2022-12-23] MEDS: Albuterol HFA (OR) 200 PUFF INH INH SCH ×6 (02:02→23:15)
[2022-12-23] MEDS: HumaLOG 300 UNITS/3 ML VIAL SC PRN ×3 (06:05→17:17)
[2022-12-23] MEDS: guaiFENesin ER 600 MG TAB PO SCH ×2 (08:12→20:43)
[2022-12-23] MEDS: Cefdinir 300 MG CAP PO SCH ×2 (08:12→20:43)
[2022-12-23] MEDS: Lisinopril 20 MG TAB PO SCH ×2 (08:12→20:43)
[2022-12-23] MEDS: Amiodarone 200 MG TAB PO SCH (08:12)
[2022-12-23] MEDS: Apixaban 5 MG TAB PO SCH ×2 (08:12→20:48)
[2022-12-23] MEDS: methylPREDNISolone Sod Succ 40 MG VIAL IVP SCH (08:12)
[2022-12-23] MEDS: Insulin Glargine 30 UNITS/0.3 ML VIAL SC SCH ×2 (08:13→20:50)
[2022-12-23] MEDS ORDERED: NIFEdipine XL 60 MG TAB PO SCH (09:00)
[2022-12-23] MEDS ORDERED: Ondansetron PF 4 MG/2 ML Vial IVP PRN (09:20)
[2022-12-23] MEDS: Atorvastatin Calcium 20 MG TAB PO SCH (20:43)
[2022-12-24] MEDS: Albuterol HFA (OR) 200 PUFF INH INH SCH ×3 (03:15→11:26)
[2022-12-24 04:06] VITALS: TEMP 98.3
[2022-12-24] MEDS ORDERED: predniSONE 20 MG TAB PO SCH (08:00)
[2022-12-24] MEDS: Amiodarone 200 MG TAB PO SCH (09:45)
[2022-12-24] MEDS: guaiFENesin ER 600 MG TAB PO SCH (09:45)
[2022-12-24] MEDS: Cefdinir 300 MG CAP PO SCH (09:45)
[2022-12-24] MEDS: Apixaban 5 MG TAB PO SCH (09:45)
[2022-12-24] MEDS: Lisinopril 20 MG TAB PO SCH (09:46)
[2022-12-24] MEDS: Insulin Glargine 30 UNITS/0.3 ML VIAL SC SCH (09:49)
[2022-12-24 11:28] VITALS: BP 128/60
== END 2022-12-24 14:28 | disposition home or self-care (01) | DRG 189 ==
LOC: ERS 06:35 → 2NO 10:54 → OBSVTOIN 12-20 12:36
PROVIDERS: ADMIT Internal Medicine; ATTEND Family Medicine
DX: J96.01 Acute respiratory failure with hypoxia (principal); J20.9 Acute bronchitis, unspecified; I10 Essential (primary) hypertension; Z20.822 Contact with and (suspected) exposure to COVID-19; K21.9 Gastro-esophageal reflux disease without esophagitis; E78.5 Hyperlipidemia, unspecified; M19.90 Unspecified osteoarthritis, unspecified site; F41.9 Anxiety disorder, unspecified; F32.A Depression, unspecified; E11.649 Type 2 diabetes mellitus with hypoglycemia without coma; I48.0 Paroxysmal atrial fibrillation; R35.0 Frequency of micturition; Z88.5 Allergy status to narcotic agent; Z88.8 Allergy status to other drugs, medicaments and biological substances; Z95.0 Presence of cardiac pacemaker; Z90.49 Acquired absence of other specified parts of digestive tract; Z98.890 Other specified postprocedural states; Z79.4 Long term (current) use of insulin; Z79.899 Other long term (current) drug therapy; Z79.01 Long term (current) use of anticoagulants
CPT/HCPCS: 36415; 36416; 71045; 80048; 80053; 81001; 82553; 83605; 83880; 84484; 85025; 93005; 94640; 94760; 96365; 96375; J0456; J0696; J1815; J2405; J2920; J2930; J7512; J7611; J7620

== ENCOUNTER 2023-10-06 18:50 | Emergency (ER) | payer MEDICARE, OTHER ==
[2023-10-06] MEDS ORDERED: Orphenadrine Citrate 60 MG/2 ML VIAL ONE (21:33)
== END 2023-10-06 22:25 | disposition home or self-care (01) ==
LOC: ERS 18:50
DX: I95.1 Orthostatic hypotension (principal); I48.91 Unspecified atrial fibrillation; E78.5 Hyperlipidemia, unspecified; E11.9 Type 2 diabetes mellitus without complications; I10 Essential (primary) hypertension; Z87.891 Personal history of nicotine dependence; Z79.4 Long term (current) use of insulin; Z79.01 Long term (current) use of anticoagulants; Z79.899 Other long term (current) drug therapy
CPT/HCPCS: 93005; 96372; J2360

== ENCOUNTER 2024-07-20 02:24 | Emergency (ER) | payer MEDICARE, OTHER ==
[2024-07-20] MEDS ORDERED: Dexamethasone 10 MG/ML VIAL ONE (03:54)
[2024-07-20] MEDS ORDERED: cefTRIAXone (ROCEPHIN) 1 GM VIAL ONE (03:54)
[2024-07-20] MEDS ORDERED: Lidocaine 1% PF 5 ML VIAL ONE (03:55)
== END 2024-07-20 04:35 | disposition home or self-care (01) ==
LOC: ERS 02:24
DX: R05.1 Acute cough (principal); E78.5 Hyperlipidemia, unspecified; E11.9 Type 2 diabetes mellitus without complications; Z79.01 Long term (current) use of anticoagulants; Z79.4 Long term (current) use of insulin; Z79.899 Other long term (current) drug therapy; Z87.891 Personal history of nicotine dependence
CPT/HCPCS: 71045; 87428; 96372; 99284; J0696; J1100

== ENCOUNTER 2025-05-30 23:42 | Inpatient (IN) | payer MEDICARE, OTHER ==
[2025-05-31] MEDS ORDERED: Nitroglycerin 2% Ointment 1 INCH/1 GM Packet ONE (00:37)
[2025-05-31 00:38] LABS: #Basophils 0.04 10x3/uL (0.0-0.2); #Eosinophils Less than 0.03 10x3/uL (0.0-0.7); #Monocytes 0.75 10x3/uL (0.11-0.59); #Neutrophils 4.58 10x3/uL (1.40-6.50); %Basophils 0.5 % (0.0-1.0); %Eosinophils 0.1 % (0.0-10.0); %Lymphocytes 28.9 % (21.0-51.0); %Monocytes 9.9 % (0.0-10.0); %Neutrophils 60.3 % (42.0-75.0); Hematocrit 27.3 % (36.0-47.0); Hemoglobin 8.8 g/dL (12.0-16.0); Mean Corpuscular Hemoglobin 30.3 pg (27.0-31.0); Mean Corpuscular Volume 94.1 fL (78.0-98.0); Platelet Count 265 10x3/uL (130-400); Red Blood Cell (RBC) Count 2.90 mill/uL (4.20-5.40); White Blood Cell (WBC) Count 7.59 10x3/uL (4.8-10.8)
[2025-05-31] MEDS ORDERED: Furosemide 40 MG (4 mL) VIAL ONE (00:38)
[2025-05-31] MEDS ORDERED: Aspirin Chewable 81 MG TAB ONE (00:38)
[2025-05-31 00:51] LABS: ALT (SGPT) 27 U/L (Less than 34); AST (SGOT) 59 U/L (11-34); Albumin 2.8 g/dL (3.1-4.5); Alkaline Phosphatase 102 U/L (40-110); Anion Gap 13 mmol/L (10-20); BUN (Urea Nitrogen) 14 mg/dL (9.8-20.1); Bilirubin, Total 0.4 mg/dL (0.3-1.2); Calc. Creatinine Clearance 0 mL/min (70-130); Calcium 7.9 mg/dL (7.8-10.44); Carbon Dioxide 25 mmol/L (23-31); Chloride 104 mmol/L (98-107); Globulin 3.4 g/dL (2.4-3.5); Glucose 90 mg/dL (83-110); Potassium 3.3 mmol/L (3.5-5.1); Sodium 139 mmol/L (136-145)
[2025-05-31 02:38] LABS: Bacteria/HPF 1+ HPF (None Seen); CAUTI Indications for Culture Pelvic or flank pain; Glucose, Urine (Dipstick) Normal (Negative); Leukocyte 250 Leu/uL (Negative); Protein, Urine (Dipstick) Negative (Neg-Trace); RBC/HPF 0-3 HPF (0-3); Specific Gravity, Urine 1.004 (1.002-1.036)
[2025-05-31 02:39] LABS: Urine Culture Reflex Yes Yes
[2025-05-31 04:24] VITALS: BMI 31.9
[2025-05-31] MEDS: Furosemide 40 MG (4 mL) VIAL SLOW IVP SCH (06:47)
[2025-05-31] MEDS: cefTRIAXone\\ROCEPHIN 1 GM in Sodium Chloride 0.9% 100 ML IVPB SCH (09:18)
[2025-05-31] MEDS: Metoprolol Succinate XL 25 MG ER.TAB PO SCH (09:19)
[2025-05-31] MEDS: metFORMIN 500 MG TAB PO SCH (09:19)
[2025-05-31] MEDS: Amiodarone 200 MG TAB PO SCH (09:19)
[2025-05-31] MEDS: Lisinopril 10 MG TAB PO SCH (09:19)
[2025-05-31] MEDS: Apixaban 5 MG TAB PO SCH (09:59)
[2025-05-31] MEDS: Acetaminophen 325 MG TAB PO PRN (16:14)
[2025-05-31] MEDS ORDERED: Glucagon 1 MG/ML KIT IM PRN (16:21)
[2025-05-31] MEDS ORDERED: Dextrose 50% Abboject 50 ML SYRINGE SLOW IVP PRN (16:21)
[2025-05-31] MEDS: Ondansetron PF 4 MG/2 ML Vial IVP PRN (21:43)
[2025-06-01] MEDS: hydrALAZINE 20 MG/ML VIAL SLOW IVP PRN (00:07)
[2025-06-01] MEDS: Nitroglycerin 0.4 MG TAB (25 Tab Bottle) ONE (00:33)
[2025-06-01] MEDS: Nitroglycerin 0.4 MG TAB (25 Tab Bottle) SL PRN (00:51)
[2025-06-01 01:10] LABS: #Basophils 0.03 10x3/uL (0.0-0.2); #Eosinophils Less than 0.03 10x3/uL (0.0-0.7); #Monocytes 0.62 10x3/uL (0.11-0.59); #Neutrophils 4.41 10x3/uL (1.40-6.50); %Basophils 0.4 % (0.0-1.0); %Eosinophils 0.1 % (0.0-10.0); %Lymphocytes 24.8 % (21.0-51.0); %Monocytes 9.2 % (0.0-10.0); %Neutrophils 65.2 % (42.0-75.0); Hematocrit 27.8 % (36.0-47.0); Hemoglobin 9.2 g/dL (12.0-16.0); Mean Corpuscular Hemoglobin 30.9 pg (27.0-31.0); Mean Corpuscular Volume 93.3 fL (78.0-98.0); Platelet Count 259 10x3/uL (130-400); Red Blood Cell (RBC) Count 2.98 mill/uL (4.20-5.40); White Blood Cell (WBC) Count 6.77 10x3/uL (4.8-10.8)
[2025-06-01 02:08] LABS: ALT (SGPT) 26 U/L (Less than 34); AST (SGOT) 63 U/L (11-34); Albumin 2.7 g/dL (3.1-4.5); Alkaline Phosphatase 87 U/L (40-110); Anion Gap 16 mmol/L (10-20); BUN (Urea Nitrogen) 16 mg/dL (9.8-20.1); Bilirubin, Total 0.5 mg/dL (0.3-1.2); Calc. Creatinine Clearance 44 mL/min (70-130); Calcium 7.7 mg/dL (7.8-10.44); Carbon Dioxide 25 mmol/L (23-31); Chloride 97 mmol/L (98-107); Globulin 3.2 g/dL (2.4-3.5); Glucose 147 mg/dL (83-110); Magnesium 1.0 mg/dL (1.6-2.6); Potassium 3.5 mmol/L (3.5-5.1); Sodium 134 mmol/L (136-145)
[2025-06-01] MEDS: Magnesium Sulfate In Water 4 GM in Premix 1 BAG IVPB SCH (02:34)
[2025-06-02] MEDS: Furosemide 20 MG TAB PO SCH (07:55)
[2025-06-02 12:04] VITALS: BP 143/65; TEMP 98.3
== END 2025-06-02 13:40 | disposition home or self-care (01) | DRG 291 ==
LOC: ERS 23:42 → 2NO 05-31 02:03
PROVIDERS: ADMIT Student in an Organized Health Care Education/Training Program; ATTEND Internal Medicine
DX: I11.0 Hypertensive heart disease with heart failure (principal); I50.33 Acute on chronic diastolic (congestive) heart failure; N39.0 Urinary tract infection, site not specified; I48.20 Chronic atrial fibrillation, unspecified; E11.9 Type 2 diabetes mellitus without complications; E78.5 Hyperlipidemia, unspecified; I16.0 Hypertensive urgency; D64.9 Anemia, unspecified; R79.89 Other specified abnormal findings of blood chemistry; Z79.899 Other long term (current) drug therapy; Z88.5 Allergy status to narcotic agent; Z88.8 Allergy status to other drugs, medicaments and biological substances; Z90.710 Acquired absence of both cervix and uterus; Z98.49 Cataract extraction status, unspecified eye; Z98.890 Other specified postprocedural states; Z95.0 Presence of cardiac pacemaker; Z90.49 Acquired absence of other specified parts of digestive tract; Z79.84 Long term (current) use of oral hypoglycemic drugs
CPT/HCPCS: 36415; 36416; 71045; 80053; 81001; 83735; 83880; 84484; 85025; 87077; 87086; 87186; 87426; 93005; 93306; 93798; 96374; 97139; J0360; J0696; J1815; J1940; J3475

== ENCOUNTER 2025-07-26 14:10 | Inpatient (IN) | payer MEDICARE, OTHER ==
[2025-07-26 19:28] LABS: #Basophils 0.04 10x3/uL (0.0-0.2); #Eosinophils Less than 0.03 10x3/uL (0.0-0.7); #Monocytes 0.56 10x3/uL (0.11-0.59); #Neutrophils 7.20 10x3/uL (1.40-6.50); %Basophils 0.4 % (0.0-1.0); %Eosinophils 0.0 % (0.0-10.0); %Lymphocytes 13.2 % (21.0-51.0); %Monocytes 6.2 % (0.0-10.0); %Neutrophils 79.5 % (42.0-75.0); Hematocrit 26.5 % (36.0-47.0); Hemoglobin 8.7 g/dL (12.0-16.0); Mean Corpuscular Hemoglobin 30.1 pg (27.0-31.0); Mean Corpuscular Volume 91.7 fL (78.0-98.0); Platelet Count 241 10x3/uL (130-400); Red Blood Cell (RBC) Count 2.89 mill/uL (4.20-5.40); White Blood Cell (WBC) Count 9.06 10x3/uL (4.8-10.8)
[2025-07-26 19:54] LABS: ALT (SGPT) 65 U/L (Less than 34); AST (SGOT) 139 U/L (11-34); Albumin 3.1 g/dL (3.1-4.5); Alkaline Phosphatase 115 U/L (40-110); Anion Gap 17 mmol/L (10-20); BUN (Urea Nitrogen) 15 mg/dL (9.8-20.1); Bilirubin, Total 0.7 mg/dL (0.3-1.2); Calc. Creatinine Clearance 0 mL/min (70-130); Calcium 8.7 mg/dL (7.8-10.44); Carbon Dioxide 24 mmol/L (23-31); Chloride 105 mmol/L (98-107); Globulin 3.2 g/dL (2.4-3.5); Glucose 187 mg/dL (83-110); Magnesium 1.4 mg/dL (1.6-2.6); Potassium 4.1 mmol/L (3.5-5.1); Sodium 142 mmol/L (136-145)
[2025-07-26] MEDS ORDERED: Dextrose 50% Abboject 50 ML SYRINGE SLOW IVP PRN (20:40)
[2025-07-26] MEDS ORDERED: Glucagon 1 MG/ML KIT IM PRN (20:40)
[2025-07-26] MEDS ORDERED: Potassium Chloride 20 MEQ in Premix 1 BAG IVPB PRN (21:00)
[2025-07-26] MEDS ORDERED: PHOS-NAK 1 PKT PACK PO PRN (21:00)
[2025-07-26] MEDS ORDERED: Electrolyte Replacement Protocol 1 EACH FS SCH (21:00)
[2025-07-26] MEDS ORDERED: Aspirin Chewable 81 MG TAB ONE (21:11)
[2025-07-27 01:10] VITALS: BMI 34.3
[2025-07-27] MEDS: Acetaminophen 325 MG TAB PO SCH (01:22)
[2025-07-27] MEDS: Furosemide 20 MG (2 mL) VIAL SLOW IVP SCH (01:23)
[2025-07-27] MEDS: Magnesium 2 GM/50 ML(in water) 2 GM in Premix 1 BAG IVPB SCH (01:25)
[2025-07-27 05:36] LABS: #Basophils 0.04 10x3/uL (0.0-0.2); #Eosinophils Less than 0.03 10x3/uL (0.0-0.7); #Monocytes 0.60 10x3/uL (0.11-0.59); #Neutrophils 4.27 10x3/uL (1.40-6.50); %Basophils 0.6 % (0.0-1.0); %Eosinophils 0.2 % (0.0-10.0); %Lymphocytes 23.5 % (21.0-51.0); %Monocytes 9.2 % (0.0-10.0); %Neutrophils 65.7 % (42.0-75.0); Hematocrit 26.7 % (36.0-47.0); Hemoglobin 8.4 g/dL (12.0-16.0); Mean Corpuscular Hemoglobin 28.9 pg (27.0-31.0); Mean Corpuscular Volume 91.8 fL (78.0-98.0); Platelet Count 237 10x3/uL (130-400); Red Blood Cell (RBC) Count 2.91 mill/uL (4.20-5.40); White Blood Cell (WBC) Count 6.50 10x3/uL (4.8-10.8)
[2025-07-27 06:00] LABS: Anion Gap 14 mmol/L (10-20); BUN (Urea Nitrogen) 12 mg/dL (9.8-20.1); Calc. Creatinine Clearance 61 mL/min (70-130); Calcium 8.5 mg/dL (7.8-10.44); Carbon Dioxide 26 mmol/L (23-31); Chloride 105 mmol/L (98-107); Glucose 162 mg/dL (83-110); Magnesium 1.3 mg/dL (1.6-2.6); Potassium 3.3 mmol/L (3.5-5.1); Sodium 142 mmol/L (136-145)
[2025-07-27] MEDS: Magnesium 2 GM/50 ML(in water) 2 GM in Premix 1 BAG IVPB PRN (06:20)
[2025-07-27] MEDS: DC Electrolyte Protocol FS ONE (09:47)
[2025-07-27] MEDS: Metoprolol Succinate XL 25 MG ER.TAB PO SCH (09:47)
[2025-07-27] MEDS: Amiodarone 200 MG TAB PO SCH (09:47)
[2025-07-27] MEDS: Apixaban 5 MG TAB PO SCH (09:47)
[2025-07-27] MEDS: metFORMIN 500 MG TAB PO SCH (11:09)
[2025-07-27] MEDS ORDERED: Furosemide 20 MG (2 mL) VIAL SLOW IVP SCH (14:00)
[2025-07-27] MEDS: Furosemide 40 MG (4 mL) VIAL SLOW IVP SCH (16:22)
[2025-07-27] MEDS: Sacubitril 24MG/Valsartan 26 MG TAB PO SCH (21:32)
[2025-07-27] MEDS ORDERED: PHOS-NAK 1 PKT PACK PO PRN (23:45)
[2025-07-27] MEDS ORDERED: Potassium Chloride 20 MEQ in Premix 1 BAG IVPB PRN (23:45)
[2025-07-27] MEDS ORDERED: Magnesium 2 GM/50 ML(in water) 2 GM in Premix 1 BAG IVPB PRN (23:45)
[2025-07-28] MEDS: Electrolyte Replacement Protocol 1 EACH FS ONE (00:35)
[2025-07-28 05:12] LABS: #Basophils 0.05 10x3/uL (0.0-0.2); #Eosinophils Less than 0.03 10x3/uL (0.0-0.7); #Monocytes 0.50 10x3/uL (0.11-0.59); #Neutrophils 4.24 10x3/uL (1.40-6.50); %Basophils 0.8 % (0.0-1.0); %Eosinophils 0.2 % (0.0-10.0); %Lymphocytes 18.7 % (21.0-51.0); %Monocytes 8.4 % (0.0-10.0); %Neutrophils 71.6 % (42.0-75.0); Hematocrit 28.4 % (36.0-47.0); Hemoglobin 8.8 g/dL (12.0-16.0); Mean Corpuscular Hemoglobin 28.8 pg (27.0-31.0); Mean Corpuscular Volume 92.8 fL (78.0-98.0); Platelet Count 216 10x3/uL (130-400); Red Blood Cell (RBC) Count 3.06 mill/uL (4.20-5.40); White Blood Cell (WBC) Count 5.93 10x3/uL (4.8-10.8)
[2025-07-28 05:25] LABS: Anion Gap 14 mmol/L (10-20); BUN (Urea Nitrogen) 10 mg/dL (9.8-20.1); Calc. Creatinine Clearance 59 mL/min (70-130); Calcium 8.3 mg/dL (7.8-10.44); Carbon Dioxide 26 mmol/L (23-31); Chloride 102 mmol/L (98-107); Glucose 209 mg/dL (83-110); Magnesium 1.4 mg/dL (1.6-2.6); Potassium 4.1 mmol/L (3.5-5.1); Sodium 138 mmol/L (136-145)
[2025-07-28] MEDS: Ondansetron PF 4 MG/2 ML Vial IVP PRN (05:27)
[2025-07-28] MEDS: Magnesium Sulfate In Water 4 GM in Premix 1 BAG IVPB SCH (11:43)
[2025-07-29 04:32] LABS: #Basophils 0.03 10x3/uL (0.0-0.2); #Eosinophils Less than 0.03 10x3/uL (0.0-0.7); #Monocytes 0.54 10x3/uL (0.11-0.59); #Neutrophils 3.84 10x3/uL (1.40-6.50); %Basophils 0.5 % (0.0-1.0); %Eosinophils 0.2 % (0.0-10.0); %Lymphocytes 22.0 % (21.0-51.0); %Monocytes 9.5 % (0.0-10.0); %Neutrophils 67.4 % (42.0-75.0); Hematocrit 32.5 % (36.0-47.0); Hemoglobin 10.3 g/dL (12.0-16.0); Mean Corpuscular Hemoglobin 29.3 pg (27.0-31.0); Mean Corpuscular Volume 92.6 fL (78.0-98.0); Platelet Count 236 10x3/uL (130-400); Red Blood Cell (RBC) Count 3.51 mill/uL (4.20-5.40); White Blood Cell (WBC) Count 5.69 10x3/uL (4.8-10.8)
[2025-07-29 04:48] LABS: Anion Gap 15 mmol/L (10-20); BUN (Urea Nitrogen) 13 mg/dL (9.8-20.1); Calc. Creatinine Clearance 51 mL/min (70-130); Calcium 8.5 mg/dL (7.8-10.44); Carbon Dioxide 27 mmol/L (23-31); Chloride 101 mmol/L (98-107); Glucose 172 mg/dL (83-110); Magnesium 2.5 mg/dL (1.6-2.6); Potassium 3.7 mmol/L (3.5-5.1); Sodium 139 mmol/L (136-145)
[2025-07-29] MEDS: Furosemide 20 MG TAB PO SCH (08:58)
[2025-07-29 16:36] VITALS: BP 136/61; TEMP 98.2
[2025-07-29] MEDS ORDERED: Senokot S 8.6-50 MG TAB PO SCH (21:00)
[2025-07-30] MEDS ORDERED: Metoprolol Succinate XL 25 MG ER.TAB PO SCH (09:00)
== END 2025-07-29 17:11 | DRG 183 ==
LOC: ERS 14:10 → ERHOLD 21:02 → 2NO 23:57
PROVIDERS: ADMIT Colon & Rectal Surgery; ATTEND Colon & Rectal Surgery
DX: S22.41XA Multiple fractures of ribs, right side, initial encounter for closed fracture (principal); I50.33 Acute on chronic diastolic (congestive) heart failure; I5A Non-ischemic myocardial injury (non-traumatic); E83.42 Hypomagnesemia; E11.9 Type 2 diabetes mellitus without complications; I11.0 Hypertensive heart disease with heart failure; Z98.890 Other specified postprocedural states; Z98.49 Cataract extraction status, unspecified eye; Z95.0 Presence of cardiac pacemaker; Z88.5 Allergy status to narcotic agent; Z88.8 Allergy status to other drugs, medicaments and biological substances; Z79.899 Other long term (current) drug therapy; R74.01 Elevation of levels of liver transaminase levels; W19.XXXA Unspecified fall, initial encounter; I48.0 Paroxysmal atrial fibrillation; Z91.199 Patient's noncompliance with other medical treatment and regimen due to unspecified reason; I27.20 Pulmonary hypertension, unspecified; R79.89 Other specified abnormal findings of blood chemistry; E87.6 Hypokalemia; I08.3 Combined rheumatic disorders of mitral, aortic and tricuspid valves
CPT/HCPCS: 36415; 36416; 70450; 71045; 71250; 72125; 80048; 80053; 83735; 83880; 84100; 84484; 85025; 93005; 97139; J1815; J1940; J2272; J2405; J3475; Q0169